=== PATIENT | male | born 1940 | race Caucasian/White ===

== ENCOUNTER 2016-07-12 13:51 | Inpatient (IN) | payer MEDICARE, BC ==
[~2016-07-12] VITALS: Ht 180.3 cm; Wt 81.1 kg
[2016-07-12] VITALS (7 sets, daily range): BP systolic 120–209; BP diastolic 59–90; PULSE 55–72; RESP 14–20; TEMP 97.1–97.8; O2SAT 95–100
--- NOTE | 2016-07-12 13:58 | PD ---
Physical Exam Date Seen by Provider: July 12, 2016 Time Seen by Provider: 13:54 Narrative 76 YOWM C/O EPIGASTRIC ABD PAIN SINCE YEST AM. NAUSEA NO EMESIS. NO LIVER DISEASE OR PANCREATITIS. H/O [place] PAIN 09/02. VS NOTED WAITING FOR BED PLACEMENT Data Data Last Documented VS Vital Signs Date Time Temp Pulse Resp B/P Pulse Ox O2 Delivery O2 Flow Rate FiO2 07/12/16 13:53 97.6 55 209/90 100 MDM Medical Record Reviewed: Yes Supervised Visit with DENICE: Parvez Judge July 12, 2016 13:58
--- NOTE | 2016-07-12 14:19 | PD ---
HPI Chief Complaint: Abdominal Pain Time Seen by Provider: 13:58 Travel History International Travel<30 days: No Contact w/Intl Traveler<30days: No Traveled to known affect area: No History of Present Illness HPI This is a 76-year-old male with a history of previous cholecystitis, who is status post cholecystectomy, who presents today with complaints of epigastric pain since yesterday. The patient denies any fevers, chills. The patient reports it feels like the pain he had when he had his cholecystitis. His last bowel movement was yesterday which was normal. He denies any urinary symptoms. He denies any chest pain or chest pressure. There is no previous history of ulcer. Patient has no history of pancreatitis. PFS Past Medical History Tetanus Vaccination: Unknown Influenza Vaccination: No Past Surgical History Abdominal Surgery: Yes (hernia) Cholecystectomy: Yes Social History Alcohol Use: Yes (rarely) Tobacco Use: No Substance Use: No Allergies-Medications (Allergen,Severity, Reaction): Coded Allergies: No Known Allergies (Unverified , 07/12/16) Reported Meds & Prescriptions Reported Meds & Active Scripts Active Reported Fish Oil 1000 mg ([place]-3 Fatty Acids) 1 Cap Cap 1,000 Mg PO DAILY Coq-10 (Coenzyme Q10 (Ubidecarenone)) 100 Mg Cap 100 Mg PO DAILY Vitamin C (Ascorbic Acid) 1,000 Mg Tab 1,000 Mg PO DAILY E-1000 (Vitamin E) 1,000 Unit Cap 1,000 Units PO DAILY Multi Vitamin and Mineral (Multiple Vitamins W/ Minerals) 1 Tab Tab 1 Tab PO DAILY Review of Systems Except as stated in HPI: all other systems reviewed are Neg General / Constitutional: No: Fever, Chills HENT: No: Headaches, Lightheadedness Cardiovascular: No: Chest Pain or Discomfort, Palpitations Respiratory: No: Cough Gastrointestinal: Positive: Abdominal Pain, No: Nausea, Vomiting, Diarrhea, Changes in Bowel Habits Genitourinary: No: Frequency, Dysuria Musculoskeletal: No: Weakness, Pain Neurologic: No: Weakness, Headache Physical Exam Narrative GENERAL: Well-nourished, well-developed patient, in no acute respiratory distress. SKIN: Focused skin assessment warm/dry. HEAD: Normocephalic/atraumatic. EYES: No scleral icterus. No injection or drainage. NECK: Supple, trachea midline. CARDIOVASCULAR: Regular rate and rhythm without murmurs, gallops, or rubs. RESPIRATORY: Breath sounds equal bilaterally. No accessory muscle use. GASTROINTESTINAL: Abdomen soft, nondistended. The patient has subjective epigastric pain to palpation. There is no rebound. There is mild guarding. There are no pulsatile masses. MUSCULOSKELETAL: No cyanosis, or edema. NEUROLOGICAL: Awake and alert. Cranial nerves II through XII intact. Motor grossly within normal limits. Five out of 5 muscle strength in all muscle groups. Normal speech. Data Data Last Documented VS Vital Signs Date Time Temp Pulse Resp B/P Pulse Ox O2 Delivery O2 Flow Rate FiO2 07/12/16 16:45 70 14 120/59 99 Nasal Cannula 2 07/12/16 13:53 97.6 Orders Morphine Inj (Morphine Inj) (07/12/16 14:30) Ondansetron Inj (Zofran Inj) (07/12/16 14:30) Sodium Chlor 0.9% 1000 Ml Inj (Ns 1000 M (07/12/16 14:30) Complete Blood Count With Diff (07/12/16 14:34) Comprehensive Metabolic Panel (07/12/16 14:34) Ckmb (Isoenzyme) Profile (07/12/16 14:34) Troponin I (07/12/16 14:34) Lipase (07/12/16 14:34) Urinalysis - C+S If Indicated (07/12/16 14:34) Chest, Single Ap (07/12/16 14:34) Iv Access Insert/Monitor (07/12/16 14:34) Ecg Monitoring (07/12/16 14:34) Oximetry (07/12/16 14:34) Ketorolac Inj (Toradol Inj) (07/12/16 15:15) CKMB (07/12/16 14:15) CKMB% (07/12/16 14:15) Ct Abd/Pel W/O Iv Contrast (07/12/16 16:04) Electrocardiogram (07/12/16 14:06) Admit To Inpatient (07/12/16 ) Vital Signs (Adult) Q4H (07/12/16 18:28) Activity Oob With Assistance (07/12/16 18:28) Diet Clear Liquid (07/12/16 Dinner) Sodium Chloride 0.9% Flush (Ns Flush) (07/12/16 18:30) Sodium Chloride 0.9% Flush (Ns Flush) (07/12/16 21:00) Acetaminophen (Tylenol) (07/12/16 18:30) Ondansetron Inj (Zofran Inj) (07/12/16 18:30) Magnesium Hydroxide Liq (Milk Of Magnesi (07/12/16 18:30) Basic Metabolic Panel (Bmp) (07/13/16 06:00) Complete Blood Count With Diff (07/13/16 06:00) Resp Oxygen Jerrell C Titrat 1-4 L (07/12/16 ) Scd Bilateral/Knee High RENAY.BID (07/12/16 18:28) Hydromorphone (Dilaudid) (07/12/16 18:30) Naloxone Inj (Narcan Inj) (07/12/16 18:30) Inpatient Certification (07/12/16 ) Pill Splitter (Pill Splitter) (07/12/16 18:45) Admit Order (Ed Use Only) (07/12/16 18:42) Labs Laboratory Tests Test 07/12/16 07/12/16 14:15 14:55 White Blood Count 11.6 TH/MM3 Red Blood Count 4.66 MIL/MM3 Hemoglobin 13.6 GM/DL Hematocrit 42.0 % Mean Corpuscular Volume 90.2 FL Mean Corpuscular Hemoglobin 29.1 PG Mean Corpuscular Hemoglobin 32.3 % Concent Red Cell Distribution Width 14.5 % Platelet Count 246 TH/MM3 Mean Platelet Volume 9.2 FL Neutrophils (%) (Auto) 68.2 % Lymphocytes (%) (Auto) 22.5 % Monocytes (%) (Auto) 7.7 % Eosinophils (%) (Auto) 1.3 % Basophils (%) (Auto) 0.3 % Neutrophils # (Auto) 7.9 TH/MM3 Lymphocytes # (Auto) 2.6 TH/MM3 Monocytes # (Auto) 0.9 TH/MM3 Eosinophils # (Auto) 0.1 TH/MM3 Basophils # (Auto) 0.0 TH/MM3 CBC Comment DIFF FINAL Differential Comment Sodium Level 136 MEQ/L Potassium Level 5.0 MEQ/L Chloride Level 103 MEQ/L Carbon Dioxide Level 26.2 MEQ/L Anion Gap 7 MEQ/L Blood Urea Nitrogen 14 MG/DL Creatinine 0.89 MG/DL Estimat Glomerular Filtration 84 ML/MIN Rate Random Glucose 102 MG/DL Calcium Level 9.5 MG/DL Total Bilirubin 2.8 MG/DL Aspartate Amino Transf 617 U/L (AST/SGOT) Alanine Aminotransferase 440 U/L (ALT/SGPT) Alkaline Phosphatase 221 U/L Total Creatine Kinase 163 U/L Creatine Kinase MB 1.4 NG/ML Troponin I LESS THAN 0.02 NG/ML Total Protein 7.7 GM/DL Albumin 3.6 GM/DL Lipase 308 U/L Urine Color YELLOW Urine Turbidity CLEAR Urine pH 6.5 Urine Specific [place] 1.012 Urine Protein TRACE mg/dL Urine Glucose (UA) NEG mg/dL Urine Ketones 40 mg/dL Urine Occult Blood SMALL Urine Nitrite NEG Urine Bilirubin NEG Urine Urobilinogen LESS THAN 2.0 MG/DL Urine Leukocyte Esterase NEG Urine RBC 14 /hpf Microscopic Urinalysis Comment CULT NOT INDICATED MDM Medical Decision Making Medical Screen Exam Complete: Yes Emergency Medical Condition: Yes Differential Diagnosis Pancreatitis versus retained gallstone versus peptic ulcer disease. Narrative Course 76 year-old gentleman who is reporting the status post cholecystectomy roughly one year ago in [facility], who presents today with epigastric pain. The patient states the pain feels as though it did when he had his gallbladder taken out. The patient denies any fevers, chills. He reports pain and decreased appetite. The patient's liver enzymes, bilirubin, lipase are all elevated. A noncontrast CT scan of the and pelvis shows what looks like a gallbladder with gallstones and a gallstone stuck in his common bile duct. There is mild dilatation of the bile duct. I discussed with the patient that our radiologist feels as though he still has his gallbladder. Either way, he will need an MRCP to remove the common bile duct stone. The [facility] the patient to his service. He has been given pain medicines and that current is having very little discomfort. Diagnosis Primary Impression: retained gallstone and common bile duct Additional Impressions: Elevated liver enzymes Elevated lipase Epigastric pain Admitting Information Admitting Physician Requests: Admit Robbin Washington MD July 12, 2016 14:19
[2016-07-12] MEDS ORDERED: ONDANSETRON HCL 4 MG/2 ML VIAL IVP ONE (14:30)
[2016-07-12] MEDS ORDERED: MORPHINE SULFATE 4 MG/ML INJ IV ONE (14:30)
[2016-07-12] MEDS: SODIUM CHLOR 0.9% 1000 ML INJ 1,000 ML IV SCH ×2 (14:37→21:50)
[2016-07-12 15:05] LABS: AUTOMATED NEUTROPHIL # 7.9 TH/MM3 (1.8-7.7); BASOPHIL % 0.3 % (0.0-2.0); EOSINOPHIL # 0.1 TH/MM3 (0-0.4); EOSINOPHIL % 1.3 % (0.0-4.0); HEMO FLAGS DIFF FINAL; LYMPH % 22.5 % (9.0-44.0); LYMPHOCYTE # 2.6 TH/MM3 (1.0-4.8); MEAN CELL VOLUME 90.2 FL (80.0-100.0); MEAN CORPUSCULAR HEMOGLOBIN 29.1 PG (27.0-34.0); MEAN CORPUSCULAR HGB CONC 32.3 % (32.0-36.0); MONO % 7.7 % (0.0-8.0); NEUT % 68.2 % (16.0-70.0); PLATELET COUNT 246 TH/MM3 (150-450); RED BLOOD COUNT 4.66 MIL/MM3 (4.50-5.90); RED CELL DISTRIBUTION WIDTH 14.5 % (11.6-17.2); WHITE BLOOD COUNT 11.6 TH/MM3 (4.0-11.0)
[2016-07-12] MEDS ORDERED: KETOROLAC TROMETHAMINE 30 MG/ML (IVP) VIAL IV PUSH ONE ×2 (15:15→22:30)
--- NOTE | 2016-07-12 15:25 | RADRPT ---
EXAM DATE/TIME: 07/12/2016 14:36 [facility] COMPARISON: No previous studies available for comparison. INDICATIONS : Lower chest/ upper abdomen pain. MEDICAL HISTORY : None. SURGICAL HISTORY : Cholecystectomy. ENCOUNTER: Initial ACUITY: 1 day PAIN SCORE: 7/10 LOCATION: Bilateral chest FINDINGS: A single view of the chest demonstrates the lungs to be symmetrically aerated without evidence of mas s, infiltrate or effusion. The cardiomediastinal contours are unremarkable. Osseous structures are intact. CONCLUSION: No acute disease. Roger Oshea MD FACR on July 12, 2016 at 15:23 Board Certified Radiologist. This report was verified electronically.
[2016-07-12] MEDS ORDERED: OMEG100037 PO (15:27)
[2016-07-12] MEDS ORDERED: VITA10007 PO (15:27)
[2016-07-12] MEDS ORDERED: COQ-100C2 PO (15:27)
[2016-07-12] MEDS ORDERED: E-10CAP PO (15:27)
[2016-07-12] MEDS ORDERED: MULT-142 PO (15:27)
[2016-07-12 15:48] LABS: ALKALINE PHOSPHATASE 221 U/L (45-117); ALT (GPT) 440 U/L (12-78); ANION GAP 7 MEQ/L (5-15); AST (GOT) 617 U/L (15-37); BICARBONATE 26.2 MEQ/L (21.0-32.0); BLOOD UREA NITROGEN 14 MG/DL (7-18); CHLORIDE 103 MEQ/L (98-107); CREATINE KINASE 163 U/L (39-308); GLOMERULAR FILTRATION RATE 84 ML/MIN (>89); SODIUM (NA) 136 MEQ/L (136-145); TOTAL BILIRUBIN ADULT 2.8 MG/DL (0.2-1.0)
[2016-07-12 16:01] LABS: CKMB 1.4 NG/ML (0.5-3.6)
[2016-07-12 16:04] LABS: BLOOD, URINE SMALL (NEG); COMMENT (UR) CULT NOT INDICATED; CULTURE IF INDICATED CULT NOT INDICATED; GLUCOSE,URINE NEG (NEG); KETONE, URINE 40 mg/dL (NEG); NITRITE,URINE NEG (NEG); PH, URINE 6.5 (5.0-8.5); URINE COLOR YELLOW (YELLW/STRAW)
--- NOTE | 2016-07-12 17:22 | RADRPT ---
EXAM DATE/TIME: 07/12/2016 16:57 [facility] COMPARISON: No previous studies available for comparison. INDICATIONS : Evaluate for pancreatitis. ORAL CONTRAST: No oral contrast ingested. RADIATION DOSE: 6.68 CTDIvol (mGy) MEDICAL HISTORY : Hernia. SURGICAL HISTORY : Cholecystectomy. ENCOUNTER: Initial ACUITY: 2 days PAIN SCALE: 4/10 LOCATION: Bilateral upper quadrant TECHNIQUE: Volumetric scanning of the abdomen and pelvis was performed. Using automated exposure control and ad justment of the mA and/or kV according to patient size, radiation dose was kept as low as reasonably achievable to obtain optimal diagnostic quality images. FINDINGS: There are centrilobular emphysematous changes in both lower lobes. The liver and spleen are normal in size and no focal defects are identified. Multiple splenic granulomas are present. There is history of cholecystectomy there does appear to be a small calcified gallbladder with stones present. There i s a tiny stone in the distal common bile duct measuring 2 mm. The adrenal glands are unremarkable. Th e right kidney is unremarkable. There is a single simple cyst in the left kidney measuring 6 cm. Examination of the pelvis demonstrates no evidence of free fluid or pelvic mass. No abnormally enlarg ed inguinal or retroperitoneal lymph nodes are present. The bladder is unremarkable. The prostate gla nd is moderately enlarged impinging on the bladder base. CONCLUSION: 1. Findings consisted with a small gallbladder and cholelithiasis despite the history of cholecystect kemal. Radionuclide imaging is recommended for further evaluation if clinically indicated. 2. 2 mm stone in the distal common bile duct without significant biliary ductal dilatation in the ai er. Sj Chambers MD on July 12, 2016 at 17:15 Board Certified Radiologist. This report was verified electronically.
[2016-07-12] MEDS ORDERED: SODIUM CHLORIDE 0.9% FLUSH 10 ML FLUSH IV FLUSH PRN (18:30)
[2016-07-12] MEDS ORDERED: NALOXONE HCL 0.4 MG/ML AMP IV PRN (18:30)
[2016-07-12] MEDS ORDERED: MAGNESIUM HYDROXIDE SUSP 30 ML CUP PO PRN (18:30)
[2016-07-12] MEDS ORDERED: PILL SPLITTER OTHER PRN (18:45)
--- NOTE | 2016-07-12 19:23 | HHI.HP ---
[facility] Non-Staff Admission Diagnosis Retained common bile duct stone with elevated liver enzymes. Diagnoses: Chief Complaint: Abdominal pain Travel History International Travel<30 Days: No Contact w/Intl Traveler <30 Da: No Traveled to Known Affected Are: No History of Present Illness Mr. Johns is a pleasant 76-year-old male with a history of cholecystectomy who presents to the emergency department on 07/12/2016. On 2016 in the morning patient started having epigastric pain off and on. He slept well at night. He even went to work during the day. However his pain came back. He describes his pain as severe but dull. No nausea vomiting or fever or chills. He has not eaten anything other than banana yesterday. Patient recalls his current symptoms are similar to the pain he had when he had cholecystitis in 2014. He denies any chest pain, shortness of breath, cough. Denies any changes in bowel or bladder habits. CT abdomen pelvis shows findings consistent with a small gallbladder and cholelithiasis despite the history of cholecystectomy. 2 mm stone in the distal common bile duct without significant biliary ductal dilatation in the liver. CBC unremarkable except for WBC 11.6K. chemistry panel shows sodium 136 potassium 5.0 BUN 14 creatinine 0.89. AST 617, ALP 440, alkaline phosphatase 221. Total bilirubin 2.8. Lipase 308. Review of Systems Except as stated in HPI: all other systems reviewed are Neg Past Family Social History Past Medical History Cholecystitis Past Surgical History Open cholecystectomy, hernia repair Reported Medications Fish Oil 1000 mg ([place]-3 Fatty Acids) 1 Cap Cap 1,000 Mg PO DAILY Coq-10 (Coenzyme Q10 (Ubidecarenone)) 100 Mg Cap 100 Mg PO DAILY Vitamin C (Ascorbic Acid) 1,000 Mg Tab 1,000 Mg PO DAILY E-1000 (Vitamin E) 1,000 Unit Cap 1,000 Units PO DAILY Multi Vitamin and Mineral (Multiple Vitamins W/ Minerals) 1 Tab Tab 1 Tab PO DAILY Allergies: Coded Allergies: No Known Allergies (Unverified , 07/12/16) Family History Mother and father - both had heart disease. Social History Denies using tobacco or illicit drugs. Drinks alcohol occasionally. Physical Exam Vital Signs Vital Signs Date Time Temp Pulse Resp B/P Pulse Ox O2 Delivery O2 Flow Rate FiO2 07/12/16 16:45 70 14 120/59 99 Nasal Cannula 2 07/12/16 16:15 14 07/12/16 14:45 14 07/12/16 14:37 56 14 172/77 100 Nasal Cannula 2 07/12/16 14:08 65 16 173/77 98 Nasal Cannula 2 07/12/16 14:04 14 07/12/16 13:53 97.6 55 209/90 100 Physical Exam GENERAL: This is a well-nourished, well-developed patient, in no apparent distress. SKIN: No rashes, ecchymoses or lesions. Warm and dry. HEAD: Atraumatic. Normocephalic. No temporal or scalp tenderness. EYES: Pupils equal round and reactive. No injection or drainage. ENT: Nose without bleeding, purulent drainage or septal hematoma. Airway patent. NECK: Trachea midline. No lymphadenopathy. Supple, nontender, no meningeal signs. CARDIOVASCULAR: Regular rate and rhythm without murmurs, gallops, or rubs. No JVD. RESPIRATORY: Clear to auscultation. Breath sounds equal bilaterally. No wheezes , rales, or rhonchi. GASTROINTESTINAL: Abdomen soft, epigastric area tender to palpation, nondistended. No guarding. MUSCULOSKELETAL: Extremities without clubbing, cyanosis, or edema. NEUROLOGICAL: Awake and alert. Cranial nerves II through XII intact. No focal neurological deficits. Normal speech. Laboratory Laboratory Tests Test 07/12/16 07/12/16 14:15 14:55 White Blood Count 11.6 Red Blood Count 4.66 Hemoglobin 13.6 Hematocrit 42.0 Mean Corpuscular Volume 90.2 Mean Corpuscular Hemoglobin 29.1 Mean Corpuscular Hemoglobin 32.3 Concent Red Cell Distribution Width 14.5 Platelet Count 246 Mean Platelet Volume 9.2 Neutrophils (%) (Auto) 68.2 Lymphocytes (%) (Auto) 22.5 Monocytes (%) (Auto) 7.7 Eosinophils (%) (Auto) 1.3 Basophils (%) (Auto) 0.3 Neutrophils # (Auto) 7.9 Lymphocytes # (Auto) 2.6 Monocytes # (Auto) 0.9 Eosinophils # (Auto) 0.1 Basophils # (Auto) 0.0 CBC Comment DIFF FINAL Differential Comment Sodium Level 136 Potassium Level 5.0 Chloride Level 103 Carbon Dioxide Level 26.2 Anion Gap 7 Blood Urea Nitrogen 14 Creatinine 0.89 Estimat Glomerular Filtration 84 Rate Random Glucose 102 Calcium Level 9.5 Total Bilirubin 2.8 Aspartate Amino Transf 617 (AST/SGOT) Alanine Aminotransferase 440 (ALT/SGPT) Alkaline Phosphatase 221 Total Creatine Kinase 163 Creatine Kinase MB 1.4 Troponin I LESS THAN 0.02 Total Protein 7.7 Albumin 3.6 Lipase 308 Urine Color YELLOW Urine Turbidity CLEAR Urine pH 6.5 Urine Specific [place] 1.012 Urine Protein TRACE Urine Glucose (UA) NEG Urine Ketones 40 Urine Occult Blood SMALL Urine Nitrite NEG Urine Bilirubin NEG Urine Urobilinogen LESS THAN 2.0 Urine Leukocyte Esterase NEG Urine RBC 14 Microscopic Urinalysis Comment CULT NOT INDICATED Result Diagram: 07/12/16 1415 07/12/16 1415 Imaging Last Impressions Abdomen/Pelvis CT 07/12/16 1604 Signed Impressions: Service Date/Time: Tuesday, July 12, 2016 16:57 - CONCLUSION: 1. Findings consisted with a small gallbladder and cholelithiasis despite the history of cholecystectomy. Radionuclide imaging is recommended for further evaluation if clinically indicated. 2. 2 mm stone in the distal common bile duct without significant biliary ductal dilatation in the liver. Sj Chambers MD Chest X-Ray 07/12/16 1434 Signed Impressions: Service Date/Time: Tuesday, July 12, 2016 14:36 - CONCLUSION: No acute disease. Roger Oshea MD FACR Assessment and Plan Problem List: (1) Gallbladder/common duct stone, acute cholecystitis, no obstruction ICD Code: K80.62 Status: Acute (2) Elevated liver enzymes ICD Code: R74.8 Status: Acute Assessment and Plan Mr. Johns is a pleasant 76-year-old male with a history of cholecystitis who presents to the emergency department on 07/12/2016 due to a gastric pain, anorexia. Patient feels that his pain is similar to the pain he had when he had a cholecystitis. He underwent open cholecystectomy in 2014. - Gallbladder/, and bile duct stone - Probable cholecystitis - Cholelithiasis - Elevated liver enzymes - Patient is a status post cholecystectomy. However, CT indicates finding of a small gallbladder and cholelithiasis - Liver enzymes are elevated AST 617, ALT 440, alkaline phosphatase 221. - We'll consult GI for further workup. Discussed with GI attendings. We'll get MRCP first. Patient may need ERCP as well. - Mild hypokalemia - will monitor in the morning. Full code. SCDs. Physician Certification 2 Midnight Certification Type: Admission for Inpatient Services Order for Inpatient Services The services are ordered in accordance with Medicare regulations or non- Medicare payer requirements, as applicable. In the case of services not specified as inpatient-only, they are appropriately provided as inpatient services in accordance with the 2-midnight benchmark. Estimated LOS (days): 2 days is the estimated time the patient will need to remain in the hospital, assuming treatment plan goals are met and no additional complications. Post-Hospital Plan: Izzy Valdivia DO July 12, 2016 7:23 pm
[2016-07-12] MEDS: SODIUM CHLORIDE 0.9% FLUSH 10 ML FLUSH IV FLUSH SCH (21:00)
[2016-07-13] VITALS (11 sets, daily range): BP systolic 128–175; BP diastolic 60–81; PULSE 50–101; RESP 18–22; TEMP 96.6–101.9; O2SAT 96–99
[2016-07-13] MEDS: SODIUM CHLOR 0.9% 1000 ML INJ 1,000 ML IV SCH ×3 (04:17→22:14)
[2016-07-13 05:27] LABS: AUTOMATED NEUTROPHIL # 6.9 TH/MM3 (1.8-7.7); BASOPHIL # 0.1 TH/MM3 (0-0.2); BASOPHIL % 0.7 % (0.0-2.0); EOSINOPHIL # 0.2 TH/MM3 (0-0.4); EOSINOPHIL % 2.4 % (0.0-4.0); HEMATOCRIT 41.3 % (39.0-51.0); HEMO FLAGS DIFF FINAL; LYMPH % 19.3 % (9.0-44.0); LYMPHOCYTE # 1.9 TH/MM3 (1.0-4.8); MEAN CELL VOLUME 90.9 FL (80.0-100.0); MEAN CORPUSCULAR HEMOGLOBIN 29.4 PG (27.0-34.0); MEAN CORPUSCULAR HGB CONC 32.3 % (32.0-36.0); MONO % 7.4 % (0.0-8.0); NEUT % 70.2 % (16.0-70.0); PLATELET COUNT 226 TH/MM3 (150-450); RED BLOOD COUNT 4.54 MIL/MM3 (4.50-5.90); RED CELL DISTRIBUTION WIDTH 14.2 % (11.6-17.2); WHITE BLOOD COUNT 9.9 TH/MM3 (4.0-11.0)
[2016-07-13] MEDS: ONDANSETRON HCL 4 MG/2 ML VIAL IVP PRN ×2 (05:57→15:47)
[2016-07-13] MEDS: HYDROmorphone HCL 2 MG TAB PO PRN ×3 (05:58→20:00)
[2016-07-13 06:02] LABS: BICARBONATE 24.2 MEQ/L (21.0-32.0); POTASSIUM 3.9 MEQ/L (3.5-5.1)
[2016-07-13 10:13] LABS: INDIRECT BILIRUBIN 1.3 MG/DL (0.0-0.8); TOTAL BILIRUBIN ADULT 4.4 MG/DL (0.2-1.0)
--- NOTE | 2016-07-13 11:11 | PD.CONS ---
HPI History of Present Illness This is a pleasant 76 year old male with a history of cholecystectomy in May of 2015 who presents to the emergency department for evaluation of epigastric pain. States he had bouts of this on off for a while but was severe 2 days ago, similar to the pain he had with cholecystitis. He did fine after wards, had a good bowel movement and slept good. However the pain came back. He describes his pain as severe but dull. No nausea, vomiting, fever or chills. No change in bowels. The urine is becoming more dark. CT abdomen pelvis shows findings consistent with a small gallbladder and cholelithiasis despite the history of cholecystectomy. 2 mm stone in the distal common bile duct without significant biliary ductal dilatation in the liver. Labs revealed elevated LFTs, and bili. lipase normal, CBC unremarkable. He tells me had hx of sludge in the CBD and under went ERCP with sphincterotomy X 2, last one 3 months prior to gallbladder surgery. (Glendy Araujo) PFSH Past Medical History Cholecystitis Past Surgical History Open cholecystectomy, hernia repair, ERCP, colonoscopy (Glendy Araujo) Coded Allergies: No Known Allergies (Unverified , 07/12/16) Medications Current Medications Medications (Trade) Dose Ordered Sig/Amelia Route Start Time Stop Time Status Last Admin (NS 1000 ml Inj) 1,000 ml @ 125 mls/hr Q8H IV 07/12/16 14:30 07/13/16 04:17 (NS Flush) 2 ml UNSCH PRN IV FLUSH 07/12/16 18:30 (NS Flush) 2 ml BID IV FLUSH 07/12/16 21:00 (Tylenol) 650 mg Q4H PRN PO 07/12/16 18:30 (Zofran Inj) 4 mg Q6H PRN IVP 07/12/16 18:30 07/13/16 05:57 (Milk Of Magnesia Liq) 30 ml Q12H PRN PO 07/12/16 18:30 (Dilaudid) 0.5 mg Q4H PRN PO 07/12/16 18:30 07/13/16 05:58 (Narcan Inj) 0.4 mg UNSCH PRN IV 07/12/16 18:30 (Pill Splitter) 1 ea UNSCH PRN OTHER 07/12/16 18:45 Family History Mother and father - both had heart disease. Social History Denies using tobacco or illicit drugs. Drinks alcohol occasionally. (Glendy Araujo) Review of Systems Constitutional: DENIES: Fever, Chills Endocrine: DENIES: Polyuria Eyes: DENIES: Double Vision Ears, nose, mouth, throat: DENIES: Hoarseness Respiratory: DENIES: Shortness of breath Cardiovascular: DENIES: Lower Extremity Edema Gastrointestinal: COMPLAINS OF: Abdominal pain, DENIES: Black stools, Bloody stools, Constipation, Diarrhea, Nausea, Vomiting, Difficulty Swallowing, Anorexia, Odynophagia, Swelling of Abdomen, Heartburn, Hematemesis Genitourinary: DENIES: Hematuria Musculoskeletal: DENIES: Neck pain Integumentary: DENIES: Jaundice Hematologic/lymphatic: DENIES: Bruising Immunologic/allergic: DENIES: Eczema Neurologic: DENIES: Abnormal gait Psychiatric: DENIES: Anxiety (Glendy Araujo) GI Exam Vitals I&O Vital Signs Date Time Temp Pulse Resp B/P Pulse Ox O2 Delivery O2 Flow Rate FiO2 07/13/16 04:00 97.9 64 18 151/73 98 07/13/16 00:00 96.6 50 18 135/61 99 07/12/16 20:49 97.1 65 20 130/61 95 07/12/16 19:40 72 16 127/68 99 Nasal Cannula 2 07/12/16 16:45 70 14 120/59 99 Nasal Cannula 2 07/12/16 16:15 14 07/12/16 14:45 14 07/12/16 14:37 56 14 172/77 100 Nasal Cannula 2 07/12/16 14:08 65 16 173/77 98 Nasal Cannula 2 07/12/16 14:04 14 07/12/16 13:53 97.6 55 209/90 100 I/O 07/12/16 07/12/16 07/12/16 07/13/16 07/13/16 07/13/16 07:00 15:00 23:00 07:00 15:00 23:00 Intake Total 1285 ml 1373 ml Output Total 2000 ml 1100 ml Balance -715 ml 273 ml Intake Oral 240 ml IV Total 1285 ml 1133 ml Output Urine Total 1000 ml 1100 ml Stool Total 1000 ml # Voids 1 5 # Bowel Movements 0 Imaging Last Impressions Abdomen/Pelvis CT 07/12/16 1604 Signed Impressions: Service Date/Time: Tuesday, July 12, 2016 16:57 - CONCLUSION: 1. Findings consisted with a small gallbladder and cholelithiasis despite the history of cholecystectomy. Radionuclide imaging is recommended for further evaluation if clinically indicated. 2. 2 mm stone in the distal common bile duct without significant biliary ductal dilatation in the liver. Sj Chambers MD Chest X-Ray 07/12/16 1434 Signed Impressions: Service Date/Time: Tuesday, July 12, 2016 14:36 - CONCLUSION: No acute disease. Roger Oshea MD FACR Laboratory Test 07/12/16 07/12/16 07/13/16 14:15 14:55 04:26 White Blood Count 11.6 TH/MM3 9.9 TH/MM3 Red Blood Count 4.66 MIL/MM3 4.54 MIL/MM3 Hemoglobin 13.6 GM/DL 13.3 GM/DL Hematocrit 42.0 % 41.3 % Mean Corpuscular Volume 90.2 FL 90.9 FL Mean Corpuscular Hemoglobin 29.1 PG 29.4 PG Mean Corpuscular Hemoglobin 32.3 % 32.3 % Concent Red Cell Distribution Width 14.5 % 14.2 % Platelet Count 246 TH/MM3 226 TH/MM3 Mean Platelet Volume 9.2 FL 9.6 FL Neutrophils (%) (Auto) 68.2 % 70.2 % Lymphocytes (%) (Auto) 22.5 % 19.3 % Monocytes (%) (Auto) 7.7 % 7.4 % Eosinophils (%) (Auto) 1.3 % 2.4 % Basophils (%) (Auto) 0.3 % 0.7 % Neutrophils # (Auto) 7.9 TH/MM3 6.9 TH/MM3 Lymphocytes # (Auto) 2.6 TH/MM3 1.9 TH/MM3 Monocytes # (Auto) 0.9 TH/MM3 0.7 TH/MM3 Eosinophils # (Auto) 0.1 TH/MM3 0.2 TH/MM3 Basophils # (Auto) 0.0 TH/MM3 0.1 TH/MM3 CBC Comment DIFF FINAL DIFF FINAL Differential Comment Sodium Level 136 MEQ/L 142 MEQ/L Potassium Level 5.0 MEQ/L 3.9 MEQ/L Chloride Level 103 MEQ/L 109 MEQ/L Carbon Dioxide Level 26.2 MEQ/L 24.2 MEQ/L Anion Gap 7 MEQ/L 9 MEQ/L Blood Urea Nitrogen 14 MG/DL 11 MG/DL Creatinine 0.89 MG/DL 0.79 MG/DL Estimat Glomerular Filtration 84 ML/MIN 96 ML/MIN Rate Random Glucose 102 MG/DL 101 MG/DL Calcium Level 9.5 MG/DL 9.0 MG/DL Total Bilirubin 2.8 MG/DL 4.4 MG/DL Aspartate Amino Transf 617 U/L 900 U/L (AST/SGOT) Alanine Aminotransferase 440 U/L 770 U/L (ALT/SGPT) Alkaline Phosphatase 221 U/L 279 U/L Total Creatine Kinase 163 U/L Creatine Kinase MB 1.4 NG/ML Troponin I LESS THAN 0.02 NG/ML Total Protein 7.7 GM/DL 6.8 GM/DL Albumin 3.6 GM/DL 3.2 GM/DL Lipase 308 U/L Urine Color YELLOW Urine Turbidity CLEAR Urine pH 6.5 Urine Specific Wald[place] 1.012 Urine Protein TRACE mg/dL Urine Glucose (UA) NEG mg/dL Urine Ketones 40 mg/dL Urine Occult Blood SMALL Urine Nitrite NEG Urine Bilirubin NEG Urine Urobilinogen LESS THAN 2.0 MG/DL Urine Leukocyte Esterase NEG Urine RBC 14 /hpf Microscopic Urinalysis Comment CULT NOT INDICATED Direct Bilirubin 3.1 MG/DL Indirect Bilirubin 1.3 MG/DL Physical Examination HEENT: normocephalic; atraumatic; no jaundice. NECK: Neck is supple, no JVD, no lymphadenopathy. CHEST: Chest is clear to auscultation and percussion. CARDIAC: Regular rate and rhythm with no murmur gallop or rubs. ABDOMEN: Soft, nondistended, epigastric tenderness; no hepatosplenomegaly; bowel sounds are present in all four quadrants. EXTREMITIES: No clubbing, cyanosis, or edema. SKIN: Normal; no rash; no jaundice. [employer]: No focal deficits; alert and oriented times three. (Glendy Araujo) Assessment and Plan Plan - Choledocholithiasis/epigastric pain- CT abdomen pelvis shows findings consistent with a small gallbladder and cholelithiasis despite the history of cholecystectomy. 2 mm stone in the distal common bile duct without significant biliary ductal dilatation in the liver. Labs revealed elevated LFTs, and bili. lipase normal, CBC unremarkable. He tells me had hx of sludge in the CBD and under went ERCP with sphincterotomy X 2, last one 3 months prior to gallbladder surgery. - Elevated LFTs/bili- Worsening most likely secondary to above. today tot. bili 4.4, AST 900, ALT 770, ALP 279 - Cholelithiasis on CT, patient with hx of cholecystectomy in 2016 Plan: - NPO for now, possible ERCP today - Await MRCP results - Obtain consents for ERCP, timing to be determined - CMP, CBC in am - Supportive care - Patient seen and examined by Dr. Thurston and myself and this note is written on his behalf. (Glendy Araujo) Plan ERCP will be done tomorrow. Clear liquid diet now and NPO after midnight tonight for the ERCP (Aram Thurston MD) Glendy Araujo July 13, 2016 11:11 Aram Thurston MD July 13, 2016 16:04
[2016-07-13] MEDS: SODIUM CHLORIDE 0.9% FLUSH 10 ML FLUSH IV FLUSH SCH ×2 (12:23→20:04)
--- NOTE | 2016-07-13 15:46 | EKG ---
Date Performed: 07/12/2016 Time Performed: 14:06:41 PTAGE: 76 years EKG: SINUS BRADYCARDIA WITH OCCASIONAL SUPRAVENTRICULAR PREMATURE COMPLEXES BORDERLINE ECG NO PREVIOUS TRACING DOCTOR: Kylah Grant Interpretating Date/Time 07/13/2016 15:45:12
--- NOTE | 2016-07-13 15:48 | RADRPT ---
EXAM DATE/TIME: 07/13/2016 13:32 [facility] COMPARISON: CT ABDOMEN & PELVIS W/O CONTRAST, July 12, 2016, 16:57. INDICATIONS : Obstruction. MEDICAL HISTORY : None. SURGICAL HISTORY : Inguinal hernia repair. Cholecystectomy. ENCOUNTER: Initial ACUITY: 1 day PAIN SCORE: 5/10 LOCATION: Right upper quadrant TECHNIQUE: Multiplanar, multisequence magnetic resonance imaging of the abdomen was performed. H igh-resolution 3D dataset was utilized to reconstruct maximum-intensity projection (MIP) images. FINDINGS: There is dilatation of the intra and extrahepatic biliary ducts. The common bile duct measures 1.3 c m. The patient is status post cholecystectomy. There does appear to be a small saclike area in the right upper quadrant which likely represents some dilatation of the cystic duct remnant. There is a filling defect measuring 6 mm seen at the distal common bile duct at the ampulla. No other filling d efects are seen. There are calcifications seen around the cystic duct remnant seen on the CT examina tion. Filling defects are not seen. There is low signal in the cystic duct remnant wall suggesting the calcifications are actually in the wall. Stones are not seen in this structure on this study. There is a small 0.6 cm focal mass in the superior aspect of the right lobe of the liver best seen on the coronal T2 weighted images. This likely represents a small cyst or hemangioma. There are bilat eral renal cysts with the largest cyst seen at the superomedial left kidney measuring 6.3 cm. Hydron ephrosis is not seen. The adrenal glands are normal. The spleen is unremarkable. The pancreas appe ars grossly normal. The pancreatic duct is seen and measures 3 mm which is upper limits of normal. The IVC and aorta are unremarkable. CONCLUSION: 1. 6 mm stone in the common bile duct with dilatation of the intra and extrahepatic biliary ducts. 2. Cystic pouch like structure seen in the right upper quadrant. Given the patient's history of shakira or cholecystectomy, this likely represents dilatation of the cystic duct remnant. No filling defects are seen in this region. The calcifications in this region seen on the CT examination are likely ca lcifications within the wall. Al Sanchez MD on July 13, 2016 at 15:34 Board Certified Radiologist. This report was verified electronically.
[2016-07-13] MEDS: ACETAMINOPHEN 325 MG TAB PO PRN ×2 (17:00→21:10)
--- NOTE | 2016-07-13 21:16 | RADRPT ---
EXAM DATE/TIME: 07/13/2016 21:02 [facility] COMPARISON: CHEST SINGLE AP, July 12, 2016, 14:36. INDICATIONS : Fever and shortness of breath. MEDICAL HISTORY : None. SURGICAL HISTORY : Cholecystectomy. ENCOUNTER: Subsequent ACUITY: 1 day PAIN SCORE: 0/10 LOCATION: Bilateral chest FINDINGS: A single view of the chest demonstrates the lungs to be symmetrically aerated without evidence of mas s, infiltrate or effusion. The cardiomediastinal contours are unremarkable. Osseous structures are intact. CONCLUSION: No acute disease. Al Sanchez MD on July 13, 2016 at 21:14 Board Certified Radiologist. This report was verified electronically.
[2016-07-13 21:57] LABS: BLOOD, URINE MOD (NEG); GLUCOSE,URINE NEG (NEG); KETONE, URINE 150 mg/dL (NEG); MUCUS URINE FEW /lpf (OCC); NITRITE,URINE NEG (NEG); PH, URINE 5.5 (5.0-8.5); SQUAMOUS EPITHELIAL CELL URINE <1 /hpf (0-5); URINE COLOR DARK-YELLOW (YELLW/STRAW)
[2016-07-13 21:59] LABS: COMMENT (UR) CULT NOT INDICATED; CULTURE IF INDICATED CULT NOT INDICATED
[2016-07-13 22:11] LABS: AUTOMATED NEUTROPHIL # 8.4 TH/MM3 (1.8-7.7); BASOPHIL % 0.4 % (0.0-2.0); EOSINOPHIL % 0.1 % (0.0-4.0); HEMATOCRIT 38.1 % (39.0-51.0); HEMO FLAGS DIFF FINAL; LYMPH % 11.9 % (9.0-44.0); LYMPHOCYTE # 1.3 TH/MM3 (1.0-4.8); MEAN CORPUSCULAR HEMOGLOBIN 30.4 PG (27.0-34.0); MEAN CORPUSCULAR HGB CONC 34.2 % (32.0-36.0); MONO % 9.6 % (0.0-8.0); PLATELET COUNT 233 TH/MM3 (150-450); RED BLOOD COUNT 4.28 MIL/MM3 (4.50-5.90); RED CELL DISTRIBUTION WIDTH 14.4 % (11.6-17.2); WHITE BLOOD COUNT 10.8 TH/MM3 (4.0-11.0)
[2016-07-13] MEDS: PIPERACIL-TAZO 3.375 GM PREMIX 50 ML IV SCH (22:13)
--- NOTE | 2016-07-13 23:37 | HHI.PR ---
Subjective Remarks Follow up for epigastric pain, choledocholithiasis. Patient is currently doing well. Last night he had some pain. No fever, chills. Objective Vitals Vital Signs Date Time Temp Pulse Resp B/P Pulse Ox O2 Delivery O2 Flow Rate FiO2 07/13/16 22:17 99.9 78 143/67 07/13/16 21:06 149/78 07/13/16 21:00 20 07/13/16 20:40 101.9 07/13/16 19:25 98.3 07/13/16 19:20 101.0 101 22 167/76 97 07/13/16 16:00 99.4 67 18 175/81 96 07/13/16 12:00 98.9 59 18 128/60 98 07/13/16 08:50 96 21 07/13/16 08:00 99.3 68 19 135/65 97 07/13/16 04:00 97.9 64 18 151/73 98 07/13/16 00:00 96.6 50 18 135/61 99 I/O 07/12/16 07/12/16 07/12/16 07/13/16 07/13/16 07/13/16 07:00 15:00 23:00 07:00 15:00 23:00 Intake Total 1285 ml 1373 ml 875 ml 820 ml Output Total 2000 ml 1100 ml Balance -715 ml 273 ml 875 ml 820 ml Intake Oral 240 ml 720 ml IV Total 1285 ml 1133 ml 875 ml 100 ml Output Urine Total 1000 ml 1100 ml Stool Total 1000 ml # Voids 1 5 3 # Bowel Movements 0 0 Result Diagram: 07/13/16 2135 07/13/16 0426 Imaging Last Impressions Cholangiopancreatography MRI 07/13/16 0000 Signed Impressions: Service Date/Time: Wednesday, July 13, 2016 13:32 - CONCLUSION: 1. 6 mm stone in the common bile duct with dilatation of the intra and extrahepatic biliary ducts. 2. Cystic pouch like structure seen in the right upper quadrant. Given the patient's history of prior cholecystectomy, this likely represents dilatation of the cystic duct remnant. No filling defects are seen in this region. The calcifications in this region seen on the CT examination are likely calcifications within the wall. Al Sanchez MD Chest X-Ray 07/13/16 0000 Signed Impressions: Service Date/Time: Wednesday, July 13, 2016 21:02 - CONCLUSION: No acute disease. Al Sanchez MD Abdomen/Pelvis CT 07/12/16 1604 Signed Impressions: Service Date/Time: Tuesday, July 12, 2016 16:57 - CONCLUSION: 1. Findings consisted with a small gallbladder and cholelithiasis despite the history of cholecystectomy. Radionuclide imaging is recommended for further evaluation if clinically indicated. 2. 2 mm stone in the distal common bile duct without significant biliary ductal dilatation in the liver. Sj Chambers MD Objective Remarks GENERAL: AOX3, NAD. SKIN: Warm and dry. HEAD: Normocephalic. EYES: No scleral icterus. No injection or drainage. NECK: Supple, trachea midline. No JVD or lymphadenopathy. CARDIOVASCULAR: Regular rate and rhythm without murmurs, gallops, or rubs. RESPIRATORY: Breath sounds equal bilaterally. No accessory muscle use. GASTROINTESTINAL: Abdomen soft, epigastric tenderness on palpation, nondistended. MUSCULOSKELETAL: No cyanosis, or edema. BACK: Nontender without obvious deformity. No CVA tenderness. Procedures 07/13/2016 MRCP A/P Problem List: (1) Choledocholithiasis with obstruction ICD Code: K80.51 Status: Acute Assessment and Plan Mr. Johns is a pleasant 76-year-old male with a history of cholecystitis who presents to the emergency department on 07/12/2016 due to a gastric pain, anorexia. Patient feels that his pain is similar to the pain he had when he had a cholecystitis. He underwent open cholecystectomy in 2014. - Choledocholithiasis with obstruction - Patient is a status post cholecystectomy in 2014. - AST 617 --> 900, ALT 440 --> 770, alkaline phosphatase 221 --> 279. T Bilirubin 2.8 --> 4.4. - Discussed with GI attending. MRCP done today - shows 6mm stone in the CBD. - ERCP is scheduled for tomorrow. NPO midnight except for meds. - Continue Zosyn 3.375 g Q6hrs. - Continue Dilaudid IV PRN - Mild hyperkalemia - resolved. K+ 5.0 --> 3.9. Full code. SCDs. Izzy Chávez DO July 13, 2016 23:37
[2016-07-14] VITALS: BP 119/55; PULSE 76; RESP 20; TEMP 97.7; O2SAT 96
[2016-07-14] MEDS: PIPERACIL-TAZO 3.375 GM PREMIX 50 ML IV SCH ×5 (03:37→21:00)
[2016-07-14 04:00] VITALS: BP_SYST 110; BP_DIAS 47; BP_DIAS 51; PULSE 54; RESP 18; TEMP 96.2; O2SAT 99
[2016-07-14] MEDS ORDERED: SODIUM CHLORID 0.9% 500 ML IV PRN (06:45)
[2016-07-14] MEDS ORDERED: CHLORHEXIDINE GLUCONATE 2 % 1 PACK (2 CLOTHS) TOPICAL PRN (06:45)
[2016-07-14] MEDS ORDERED: INSULIN HUMAN REGULAR 1,000 UNITS/10 ML VIAL SQ PRN (06:45)
[2016-07-14] MEDS ORDERED: LACTATED RINGER'S 1000 ML IV PRN (06:45)
[2016-07-14] MEDS ORDERED: POVIDONE IODINE 5% (ANTISEPSIS KIT) 4 APPLICATIONS EACH NARE PRN (06:45)
[2016-07-14 06:46] LABS: AUTOMATED NEUTROPHIL # 4.9 TH/MM3 (1.8-7.7); BASOPHIL % 0.6 % (0.0-2.0); EOSINOPHIL # 0.1 TH/MM3 (0-0.4); EOSINOPHIL % 1.5 % (0.0-4.0); HEMATOCRIT 36.2 % (39.0-51.0); HEMO FLAGS DIFF FINAL; LYMPH % 22.5 % (9.0-44.0); LYMPHOCYTE # 1.7 TH/MM3 (1.0-4.8); MEAN CELL VOLUME 89.6 FL (80.0-100.0); MEAN CORPUSCULAR HEMOGLOBIN 29.3 PG (27.0-34.0); MEAN CORPUSCULAR HGB CONC 32.7 % (32.0-36.0); NEUT % 66.4 % (16.0-70.0); PLATELET COUNT 191 TH/MM3 (150-450); RED BLOOD COUNT 4.04 MIL/MM3 (4.50-5.90); WHITE BLOOD COUNT 7.4 TH/MM3 (4.0-11.0)
[2016-07-14] MEDS: HYDROmorphone HCL 2 MG TAB PO PRN (06:55)
[2016-07-14] MEDS: ONDANSETRON HCL 4 MG/2 ML VIAL IVP PRN (07:01)
[2016-07-14 07:10] LABS: ALT (GPT) 575 U/L (12-78); ANION GAP 8 MEQ/L (5-15); AST (GOT) 415 U/L (15-37); BICARBONATE 26.9 MEQ/L (21.0-32.0); BLOOD UREA NITROGEN 11 MG/DL (7-18); CHLORIDE 107 MEQ/L (98-107); GLOMERULAR FILTRATION RATE 73 ML/MIN (>89); POTASSIUM 3.4 MEQ/L (3.5-5.1); SODIUM (NA) 142 MEQ/L (136-145)
[2016-07-14 07:17] LABS: ALKALINE PHOSPHATASE 291 U/L (45-117); TOTAL BILIRUBIN ADULT 5.5 MG/DL (0.2-1.0)
[2016-07-14 08:00] VITALS: BP 126/60; PULSE 52; RESP 19; TEMP 97.9; O2SAT 98
[2016-07-14] MEDS: SODIUM CHLORIDE 0.9% FLUSH 10 ML FLUSH IV FLUSH SCH ×2 (09:00→21:00)
--- NOTE | 2016-07-14 09:54 | HHI.GIFU ---
Subjective Remarks feels ok, no pain today, still elevated LFTs Objective Vitals I&O Vital Signs Date Time Temp Pulse Resp B/P Pulse Ox O2 Delivery O2 Flow Rate FiO2 07/14/16 04:00 96.2 54 18 110/51 99 07/14/16 00:00 97.7 76 20 119/55 96 07/13/16 22:17 99.9 78 143/67 07/13/16 21:06 149/78 07/13/16 21:00 20 07/13/16 20:40 101.9 07/13/16 19:25 98.3 07/13/16 19:20 101.0 101 22 167/76 97 07/13/16 16:00 99.4 67 18 175/81 96 07/13/16 12:00 98.9 59 18 128/60 98 I/O 07/13/16 07/13/16 07/13/16 07/14/16 07/14/16 07/14/16 07:00 15:00 23:00 07:00 15:00 23:00 Intake Total 1373 ml 875 ml 820 ml 240 ml Output Total 1100 ml 250 ml Balance 273 ml 875 ml 820 ml -10 ml Intake Oral 240 ml 720 ml 240 ml IV Total 1133 ml 875 ml 100 ml Output Urine Total 1100 ml 250 ml # Voids 5 3 # Bowel Movements 0 0 0 Laboratory Laboratory Tests Test 07/13/16 07/13/16 07/14/16 21:10 21:35 05:49 Urine Color DARK-YELLOW Urine Turbidity CLEAR Urine pH 5.5 Urine Specific Shanks 1.014 Urine Protein TRACE Urine Glucose (UA) NEG Urine Ketones 150 Urine Occult Blood MOD Urine Nitrite NEG Urine Bilirubin MOD Urine Urobilinogen LESS THAN 2.0 Urine Leukocyte Esterase NEG Urine RBC 3 Urine WBC 1 Urine Squamous Epithelial <1 Cells Urine Mucus FEW Microscopic Urinalysis Comment CULT NOT INDICATED White Blood Count 10.8 7.4 Red Blood Count 4.28 4.04 Hemoglobin 13.0 11.8 Hematocrit 38.1 36.2 Mean Corpuscular Volume 89.0 89.6 Mean Corpuscular Hemoglobin 30.4 29.3 Mean Corpuscular Hemoglobin 34.2 32.7 Concent Red Cell Distribution Width 14.4 14.0 Platelet Count 233 191 Mean Platelet Volume 9.1 9.1 Neutrophils (%) (Auto) 78.0 66.4 Lymphocytes (%) (Auto) 11.9 22.5 Monocytes (%) (Auto) 9.6 9.0 Eosinophils (%) (Auto) 0.1 1.5 Basophils (%) (Auto) 0.4 0.6 Neutrophils # (Auto) 8.4 4.9 Lymphocytes # (Auto) 1.3 1.7 Monocytes # (Auto) 1.0 0.7 Eosinophils # (Auto) 0.0 0.1 Basophils # (Auto) 0.0 0.0 CBC Comment DIFF FINAL DIFF FINAL Differential Comment Lactic Acid Level 1.0 Sodium Level 142 Potassium Level 3.4 Chloride Level 107 Carbon Dioxide Level 26.9 Anion Gap 8 Blood Urea Nitrogen 11 Creatinine 1.00 Estimat Glomerular Filtration 73 Rate Random Glucose 87 Calcium Level 8.3 Total Bilirubin 5.5 Aspartate Amino Transf 415 (AST/SGOT) Alanine Aminotransferase 575 (ALT/SGPT) Alkaline Phosphatase 291 Total Protein 6.0 Albumin 2.6 Date/Time Procedure Status Source Growth 07/13/16 21:38 Aerobic Blood Culture Received Blood Peripheral Pending 07/13/16 21:38 Anaerobic Blood Culture Received Blood Peripheral Pending Physical Exam HEENT: Pupils round and reactive to light; normocephalic; atraumatic; jaundice. Throat is clear. NECK: Neck is supple, no JVD, no lymphadenopathy. CHEST: Chest is clear to auscultation and percussion. CARDIAC: Regular rate and rhythm with no murmur gallop or rubs. ABDOMEN: Soft, nondistended, nontender; no hepatosplenomegaly; bowel sounds are present in all four quadrants. EXTREMITIES: No clubbing, cyanosis, or edema. SKIN: Normal; no rash; no jaundice. [employer]IC [employer]OMATIC: No focal deficits; alert and oriented times three. Assessment and Plan Plan - Choledocholithiasis/epigastric pain- CT abdomen pelvis shows findings consistent with a small gallbladder and cholelithiasis despite the history of cholecystectomy. 2 mm stone in the distal common bile duct without significant biliary ductal dilatation in the liver. Labs revealed elevated LFTs, and bili. lipase normal, CBC unremarkable. He tells me had hx of sludge in the CBD and under went ERCP with sphincterotomy X 2, last one 3 months prior to gallbladder surgery. - Elevated LFTs/bili- Worsening most likely secondary to above. today tot. bili 4.4, AST 900, ALT 770, ALP 279 - Cholelithiasis- as evidenced by CT, patient with hx of cholecystectomy in 2016 07-14-16 patient still have elevated LFTs, S/P ERCP with stone removal, I am not sure that the elevation of LFTs is contributed to the stone Plan: - NPO except ice until am the advance as tolerated - if LFTs still elevated in am then a w/u is needed to R/O other etiology - await bx from ampulla - CMP, CBC in am - Supportive care Lucrecia Haines MD July 14, 2016 09:54
[2016-07-14] MEDS ORDERED: DO NOT ADM ANY ANTICOAGULANT DRUGS PRN (09:56)
--- NOTE | 2016-07-14 10:06 | RADRPT ---
EXAM DATE/TIME: 07/14/2016 09:32 [facility] COMPARISON: MRCP W/O CONTRAST, July 13, 2016, 13:32. INDICATIONS : Biliary obstruction. FLUORO TIME: 1.39 minutes IMAGE COUNT: 4 CONTRAST: Instilled by Ordering Physician MEDICAL HISTORY : Gall stone SURGICAL HISTORY : None. ENCOUNTER: Initial ACUITY: 3 days PAIN SCORE: Non-responsive. LOCATION: Abdomen FINDINGS: An ERCP was performed by the ordering physician. The images demonstrate dilatation of the intrahepatic and extrahepatic biliary tree as noted on the r ecent MRCP. There are numerous air bubbles seen within the common bile duct. A catheter is passed to the common hepatic duct and the balloon inflated. CONCLUSION: ERCP as above. Vineet Carson MD on July 14, 2016 at 10:03 Board Certified Radiologist. This report was verified electronically.
[2016-07-14] MEDS ORDERED: IOHEXOL 350 MG/ML 100 ML BTL (for RAD DIAG) OTHER ONE (10:26)
[2016-07-14] MEDS ORDERED: PROPOFOL 100 MG/10 ML INJ IV ONE (10:26)
--- NOTE | 2016-07-14 10:47 | HHI.PR ---
Subjective Remarks Follow-up for epigastric pain, choledocholithiasis. Patient is doing well. He reports significant improvement of his epigastric pain. Denies any fever or chills. He is about to leave for ERCP this morning. Objective Vitals Vital Signs Date Time Temp Pulse Resp B/P Pulse Ox O2 Delivery O2 Flow Rate FiO2 07/14/16 08:00 97.9 52 19 126/60 98 07/14/16 04:00 96.2 54 18 110/51 99 07/14/16 00:00 97.7 76 20 119/55 96 07/13/16 22:17 99.9 78 143/67 07/13/16 21:06 149/78 07/13/16 21:00 20 07/13/16 20:40 101.9 07/13/16 19:25 98.3 07/13/16 19:20 101.0 101 22 167/76 97 07/13/16 16:00 99.4 67 18 175/81 96 07/13/16 12:00 98.9 59 18 128/60 98 I/O 07/13/16 07/13/16 07/13/16 07/14/16 07/14/16 07/14/16 07:00 15:00 23:00 07:00 15:00 23:00 Intake Total 1373 ml 875 ml 820 ml 240 ml Output Total 1100 ml 250 ml Balance 273 ml 875 ml 820 ml -10 ml Intake Oral 240 ml 720 ml 240 ml IV Total 1133 ml 875 ml 100 ml Output Urine Total 1100 ml 250 ml # Voids 5 3 # Bowel Movements 0 0 0 Result Diagram: 07/14/16 0549 07/14/16 0549 Imaging Last Impressions GI Procedure 07/14/16 0000 Signed Impressions: Service Date/Time: Thursday, July 14, 2016 09:32 - CONCLUSION: ERCP as above. Vineet Carson MD Cholangiopancreatography MRI 07/13/16 0000 Signed Impressions: Service Date/Time: Wednesday, July 13, 2016 13:32 - CONCLUSION: 1. 6 mm stone in the common bile duct with dilatation of the intra and extrahepatic biliary ducts. 2. Cystic pouch like structure seen in the right upper quadrant. Given the patient's history of prior cholecystectomy, this likely represents dilatation of the cystic duct remnant. No filling defects are seen in this region. The calcifications in this region seen on the CT examination are likely calcifications within the wall. Al Sanchez MD Chest X-Ray 07/13/16 0000 Signed Impressions: Service Date/Time: Wednesday, July 13, 2016 21:02 - CONCLUSION: No acute disease. Al Sanchez MD Abdomen/Pelvis CT 07/12/16 1604 Signed Impressions: Service Date/Time: Tuesday, July 12, 2016 16:57 - CONCLUSION: 1. Findings consisted with a small gallbladder and cholelithiasis despite the history of cholecystectomy. Radionuclide imaging is recommended for further evaluation if clinically indicated. 2. 2 mm stone in the distal common bile duct without significant biliary ductal dilatation in the liver. Sj Chambers MD Objective Remarks GENERAL: AOX3, NAD. SKIN: Warm and dry. HEAD: Normocephalic. EYES: No scleral icterus. No injection or drainage. NECK: Supple, trachea midline. No JVD or lymphadenopathy. CARDIOVASCULAR: Regular rate and rhythm without murmurs, gallops, or rubs. RESPIRATORY: Breath sounds equal bilaterally. No accessory muscle use. GASTROINTESTINAL: Abdomen soft, epigastric tenderness on palpation, nondistended. MUSCULOSKELETAL: No cyanosis, or edema. BACK: Nontender without obvious deformity. No CVA tenderness. Procedures 07/13/2016 MRCP A/P Problem List: (1) Choledocholithiasis with obstruction ICD Code: K80.51 Status: Acute Assessment and Plan Mr. Johns is a pleasant 76-year-old male with a history of cholecystitis who presents to the emergency department on 07/12/2016 due to a gastric pain, anorexia. Patient feels that his pain is similar to the pain he had when he had a cholecystitis. He underwent open cholecystectomy in 2014. - Choledocholithiasis with obstruction - Patient is a status post cholecystectomy in 2014. - AST 617 --> 900 --> 4:15, ALT 440 --> 770 --> 575, alkaline phosphatase 221 --> 279 --> 291. T Bilirubin 2.8 --> 4.4--> 5.5. - Discussed with GI attending. MRCP done today - shows 6mm stone in the CBD. - ERCP is scheduled for this AM. - Continue Zosyn 3.375 g Q6hrs. - Continue Dilaudid IV PRN - Mild hyperkalemia - resolved. K+ 5.0 --> 3.9. Full code. SCDs. Izzy Chávez DO July 14, 2016 10:47 am
[2016-07-14 11:50] VITALS: BP 137/65; PULSE 54; RESP 18; TEMP 96.9; O2SAT 96
[2016-07-14] MEDS: SODIUM CHLOR 0.9% 1000 ML INJ 1,000 ML IV SCH ×2 (15:28→21:01)
[2016-07-14 16:00] VITALS: BP 144/64; PULSE 55; RESP 18; TEMP 97.2; O2SAT 96
[2016-07-14 20:00] VITALS: BP 137/66; PULSE 60; RESP 18; TEMP 97.7; O2SAT 99
[2016-07-15] VITALS: BP 136/59; PULSE 63; RESP 20; TEMP 97.8; O2SAT 98
[2016-07-15 04:00] VITALS: BP 141/60; PULSE 61; RESP 18; TEMP 97; O2SAT 98
[2016-07-15] MEDS: PIPERACIL-TAZO 3.375 GM PREMIX 50 ML IV SCH ×3 (04:39→15:38)
[2016-07-15] MEDS: SODIUM CHLOR 0.9% 1000 ML INJ 1,000 ML IV SCH ×3 (04:40→15:42)
[2016-07-15 07:28] VITALS: BP 135/60; PULSE 52; RESP 17; TEMP 96.7; O2SAT 96
[2016-07-15 07:38] LABS: AUTOMATED NEUTROPHIL # 3.2 TH/MM3 (1.8-7.7); BASOPHIL % 0.8 % (0.0-2.0); EOSINOPHIL # 0.2 TH/MM3 (0-0.4); EOSINOPHIL % 3.7 % (0.0-4.0); HEMO FLAGS DIFF FINAL; LYMPH % 35.4 % (9.0-44.0); LYMPHOCYTE # 2.3 TH/MM3 (1.0-4.8); MEAN CELL VOLUME 90.4 FL (80.0-100.0); MEAN CORPUSCULAR HEMOGLOBIN 29.5 PG (27.0-34.0); MEAN CORPUSCULAR HGB CONC 32.7 % (32.0-36.0); MONO % 11.8 % (0.0-8.0); NEUT % 48.3 % (16.0-70.0); PLATELET COUNT 206 TH/MM3 (150-450); RED CELL DISTRIBUTION WIDTH 14.3 % (11.6-17.2); WHITE BLOOD COUNT 6.5 TH/MM3 (4.0-11.0)
--- NOTE | 2016-07-15 07:56 | HHI.PR ---
Subjective Remarks The patient is bed, he appears in not acute distress. Says urine is getting flap lining binder today. Says doesn't have much pain after MRCP yesterday. His nothing by mouth at this time ice chips, will advance diet clear liquid diet after seen by GI. He denies any fever or chills. No nausea or vomiting. No diarrhea. Passing gas. Did not have a bowel movement however was not eating either. Patient with multiple questions, all answered of best of my ability. I explained to the patient although he had his GB removed he is still prone to have stones as it happened this time. He is jokingly says he will have 4 additional episodes re-occuring... Patient says he might want to go hoem today however I explained to the patient he is not eating as yet and we will advance slowly diet and also will monitor LFT whitch seems are improving. Objective Vitals Vital Signs Date Time Temp Pulse Resp B/P Pulse Ox O2 Delivery O2 Flow Rate FiO2 07/15/16 07:28 96.7 52 17 135/60 96 07/15/16 04:00 97.0 61 18 141/60 98 07/15/16 00:00 97.8 63 20 136/59 98 07/14/16 20:00 97.7 60 18 137/66 99 07/14/16 16:00 97.2 55 18 144/64 96 07/14/16 11:50 96.9 54 18 137/65 96 07/14/16 11:15 58 16 135/61 97 Room Air 07/14/16 11:00 58 16 100/53 97 Room Air 07/14/16 10:45 52 16 103/51 99 Room Air 07/14/16 10:30 62 16 110/56 98 Room Air 07/14/16 10:15 72 16 112/52 98 Room Air 07/14/16 10:00 97.6 76 16 118/57 100 07/14/16 08:00 97.9 52 19 126/60 98 I/O 07/14/16 07/14/16 07/14/16 07/15/16 07/15/16 07/15/16 07:00 15:00 23:00 07:00 15:00 23:00 Intake Total 240 ml 425 ml 50 ml 50 ml Output Total 250 ml 650 ml 600 ml Balance -10 ml 425 ml -600 ml -550 ml Intake Oral 240 ml 50 ml 50 ml IV Total 425 ml Output Urine Total 250 ml 650 ml 600 ml # Voids 2 # Bowel Movements 0 0 0 Result Diagram: 07/15/16 0718 07/14/16 0549 Imaging Last Impressions GI Procedure 07/14/16 0000 Signed Impressions: Service Date/Time: Thursday, July 14, 2016 09:32 - CONCLUSION: ERCP as above. Vineet Carson MD Cholangiopancreatography MRI 07/13/16 0000 Signed Impressions: Service Date/Time: Wednesday, July 13, 2016 13:32 - CONCLUSION: 1. 6 mm stone in the common bile duct with dilatation of the intra and extrahepatic biliary ducts. 2. Cystic pouch like structure seen in the right upper quadrant. Given the patient's history of prior cholecystectomy, this likely represents dilatation of the cystic duct remnant. No filling defects are seen in this region. The calcifications in this region seen on the CT examination are likely calcifications within the wall. Al Sanchez MD Chest X-Ray 07/13/16 0000 Signed Impressions: Service Date/Time: Wednesday, July 13, 2016 21:02 - CONCLUSION: No acute disease. Al Sanchez MD Abdomen/Pelvis CT 07/12/16 1604 Signed Impressions: Service Date/Time: Tuesday, July 12, 2016 16:57 - CONCLUSION: 1. Findings consisted with a small gallbladder and cholelithiasis despite the history of cholecystectomy. Radionuclide imaging is recommended for further evaluation if clinically indicated. 2. 2 mm stone in the distal common bile duct without significant biliary ductal dilatation in the liver. Sj Chambers MD Objective Remarks GENERAL: Pleasant 76 yo male, well nourished, well developed patient, alert and oriented, appears in NAD. SKIN: Warm and dry. HEAD: Normocephalic. EYES: No scleral icterus. No injection or drainage. NECK: Supple, trachea midline. No JVD or lymphadenopathy. CARDIOVASCULAR: Regular rate and rhythm without murmurs, gallops, or rubs. RESPIRATORY: Breath sounds equal bilaterally. No accessory muscle use. GASTROINTESTINAL: Abdomen soft, epigastric tenderness on palpation, nondistended. MUSCULOSKELETAL: No cyanosis, or edema. BACK: Nontender without obvious deformity. No CVA tenderness. Procedures 07/13/2016 MRCP A/P Problem List: (1) Choledocholithiasis with obstruction ICD Code: K80.51 Status: Acute Assessment and Plan Mr. Johns is a pleasant 76-year-old male with a history of cholecystitis who presents to the emergency department on 07/12/2016 due to a gastric pain, anorexia. Patient feels that his pain is similar to the pain he had when he had a cholecystitis. He underwent open cholecystectomy in 2014. - Choledocholithiasis with obstruction - Patient is a status post cholecystectomy in 2014. - AST 617 --> 900 --> 4:15, ALT 440 --> 770 --> 575, alkaline phosphatase 221 --> 279 --> 291. T Bilirubin 2.8 --> 4.4--> 5.5. LFT continues to improve. - GI specialist following, appreciate recommendations. S/P MRCP 07/14 - shows 6mm stone in the CBD. - S/P ERCP with retrival of stone by GI 07/14 - Continue Zosyn 3.375 g Q6hrs. - Continue Dilaudid IV PRN. Pain however improving after ERCP. - Mild hyperkalemia - resolved. K+ 5.0 --> 3.9. Monitor - Constipation. stool softeners/ laxatives as need. Full code. SCDs. DC plan: DC when improved and cleared for DC by consultants. NPO, advance diet to CLD per GI. DC when LFT improved, tolerates diet and cleared by GI Discussed with the patient, nurse. Deyanira Arriaza MD July 15, 2016 07:56
[2016-07-15 08:14] LABS: ALKALINE PHOSPHATASE 282 U/L (45-117); ALT (GPT) 407 U/L (12-78); ANION GAP 9 MEQ/L (5-15); AST (GOT) 185 U/L (15-37); BICARBONATE 24.6 MEQ/L (21.0-32.0); BLOOD UREA NITROGEN 12 MG/DL (7-18); CHLORIDE 108 MEQ/L (98-107); GLOMERULAR FILTRATION RATE 96 ML/MIN (>89); POTASSIUM 3.6 MEQ/L (3.5-5.1); SODIUM (NA) 142 MEQ/L (136-145); TOTAL BILIRUBIN ADULT 1.5 MG/DL (0.2-1.0)
[2016-07-15] MEDS: SODIUM CHLORIDE 0.9% FLUSH 10 ML FLUSH IV FLUSH SCH (09:00)
[2016-07-15 11:30] VITALS: BP 169/77; PULSE 52; RESP 17; TEMP 95.2; O2SAT 99
--- NOTE | 2016-07-15 12:14 | MR ---
cc: BHAVANI BURRIS M.D. DATE OF 1940 DATE OF PROCEDURE 07/15/2016 PROCEDURE ERCP with stone removal, sphincterotomy and biopsy. INDICATION A 76-year-old male with elevated liver function tests. MRCP showed common bile duct stone with dilation of biliary tree. PROCEDURE After informing the patient about the procedure and complications, consent was signed. The patient was placed in his left lateral decubitus. Adequate sedation was achieved by propofol administered by anesthesia after intubation. The scope was placed in the mouth and advanced under video guidance to the second portion of the duodenum. The ampulla was identified which was bulging and very prominent. Cannulation was performed without any difficulty. Cholangiogram showed filling defect. Sphincterotomy was done sweeping the duct with a 15-mm balloon, revealed small stone and then a biopsy from the ampulla was done. This could be a lipoma. The scope was drawn back without immediate complication. FINDINGS 1. EGD limited exam normal except prominent ampulla. 2. Common bile duct dilated with filling defect, stone removed as above. RECOMMENDATIONS 1. Await biopsy. 2. Ice chips until tomorrow. 3. If the elevation of the liver function tests continue, then the patient will need full workup to rule out other etiology for the liver function test abnormality. MD AALIYAH Galeana/NICOLASA /10:00 AM /12:10 PM
--- NOTE | 2016-07-15 14:16 | HHI.GIFU ---
Subjective Remarks Up in chair. Tolerating liquids. No n/v. No abdominal pain. (Leda Mosley) Objective Vitals I&O Vital Signs Date Time Temp Pulse Resp B/P Pulse Ox O2 Delivery O2 Flow Rate FiO2 07/15/16 11:30 95.2 52 17 169/77 99 07/15/16 07:28 96.7 52 17 135/60 96 07/15/16 04:00 97.0 61 18 141/60 98 07/15/16 00:00 97.8 63 20 136/59 98 07/14/16 20:00 97.7 60 18 137/66 99 07/14/16 16:00 97.2 55 18 144/64 96 I/O 07/14/16 07/14/16 07/14/16 07/15/16 07/15/16 07/15/16 07:00 15:00 23:00 07:00 15:00 23:00 Intake Total 240 ml 425 ml 50 ml 50 ml 2421 ml Output Total 250 ml 650 ml 600 ml Balance -10 ml 425 ml -600 ml -550 ml 2421 ml Intake Oral 240 ml 50 ml 50 ml IV Total 425 ml 2421 ml Output Urine Total 250 ml 650 ml 600 ml # Voids 2 # Bowel Movements 0 0 0 Laboratory Laboratory Tests Test 07/15/16 07:18 White Blood Count 6.5 Red Blood Count 4.10 Hemoglobin 12.1 Hematocrit 37.0 Mean Corpuscular Volume 90.4 Mean Corpuscular Hemoglobin 29.5 Mean Corpuscular Hemoglobin 32.7 Concent Red Cell Distribution Width 14.3 Platelet Count 206 Mean Platelet Volume 8.9 Neutrophils (%) (Auto) 48.3 Lymphocytes (%) (Auto) 35.4 Monocytes (%) (Auto) 11.8 Eosinophils (%) (Auto) 3.7 Basophils (%) (Auto) 0.8 Neutrophils # (Auto) 3.2 Lymphocytes # (Auto) 2.3 Monocytes # (Auto) 0.8 Eosinophils # (Auto) 0.2 Basophils # (Auto) 0.0 CBC Comment DIFF FINAL Differential Comment Sodium Level 142 Potassium Level 3.6 Chloride Level 108 Carbon Dioxide Level 24.6 Anion Gap 9 Blood Urea Nitrogen 12 Creatinine 0.79 Estimat Glomerular Filtration 96 Rate Random Glucose 72 Calcium Level 8.1 Total Bilirubin 1.5 Aspartate Amino Transf 185 (AST/SGOT) Alanine Aminotransferase 407 (ALT/SGPT) Alkaline Phosphatase 282 Total Protein 6.3 Albumin 2.6 Date/Time Procedure Status Source Growth 07/13/16 21:38 Aerobic Blood Culture - Preliminary Resulted Blood Peripheral NO GROWTH IN 2 DAYS 07/13/16 21:38 Anaerobic Blood Culture - Preliminary Resulted Blood Peripheral NO GROWTH IN 2 DAYS Imaging Last Impressions GI Procedure 07/14/16 0000 Signed Impressions: Service Date/Time: Thursday, July 14, 2016 09:32 - CONCLUSION: ERCP as above. Vineet Carson MD Cholangiopancreatography MRI 07/13/16 0000 Signed Impressions: Service Date/Time: Wednesday, July 13, 2016 13:32 - CONCLUSION: 1. 6 mm stone in the common bile duct with dilatation of the intra and extrahepatic biliary ducts. 2. Cystic pouch like structure seen in the right upper quadrant. Given the patient's history of prior cholecystectomy, this likely represents dilatation of the cystic duct remnant. No filling defects are seen in this region. The calcifications in this region seen on the CT examination are likely calcifications within the wall. Al Sanchez MD Chest X-Ray 07/13/16 0000 Signed Impressions: Service Date/Time: Wednesday, July 13, 2016 21:02 - CONCLUSION: No acute disease. Al Sanchez MD Abdomen/Pelvis CT 07/12/16 1604 Signed Impressions: Service Date/Time: Tuesday, July 12, 2016 16:57 - CONCLUSION: 1. Findings consisted with a small gallbladder and cholelithiasis despite the history of cholecystectomy. Radionuclide imaging is recommended for further evaluation if clinically indicated. 2. 2 mm stone in the distal common bile duct without significant biliary ductal dilatation in the liver. Sj Chambers MD Physical Exam HEENT: Normocephalic; atraumatic; jaundice. CHEST: CTA CARDIAC: RRR ABDOMEN: Soft, nondistended, nontender; no hepatosplenomegaly; bowel sounds are present in all four quadrants. EXTREMITIES: No clubbing, cyanosis, or edema. SKIN: Normal; no rash; no jaundice. EARRING MAKER: No focal deficits; alert and oriented times three. (Leda Mosley) Assessment and Plan Plan ASSESSMENT: - Choledocholithiasis/epigastric pain. Abdomen/Pelvis CT (07/12/16)----> 1. Findings consisted with a small gallbladder and cholelithiasis despite the history of cholecystectomy. Radionuclide imaging is recommended for further evaluation if clinically indicated. 2. 2 mm stone in the distal common bile duct without significant biliary ductal dilatation in the liver. MRCP (07/13/16)----> 1. 6 mm stone in the common bile duct with dilatation of the intra and extrahepatic biliary ducts. 2. Cystic pouch like structure seen in the right upper quadrant. Given the patient's history of prior cholecystectomy, this likely represents dilatation of the cystic duct remnant. No filling defects are seen in this region. The calcifications in this region seen on the CT examination are likely calcifications within the wall. S/P ERCP with stone (07/14/16)-----> egd limited, prominent ampulla, CBD dilated with filling defect with stone removal. LFTs improving. T. Bili 1.5, AST 185, ALT 407, Alk Phosph 282. Clinically, doing well. Tolerating clears. No n/v/pain. - Elevated LFTs secondary to obstruction. IMPROVING after ERCP. T. Bili 1.5, AST 185, ALT 407, Alk Phosph 282. - Cholelithiasis- as evidenced by CT, patient with hx of cholecystectomy in 2016 Plan: - JAKE - Await pathology - LFT in am - If tolerating diet and LFTs continue to improve, okay to be discharged home from a GI standpoint - Supportive care - Pt seen and examined by Dr. Bhandari and myself and this note is written on his behalf (Leda Mosley) Physician Comments Patient seen and examined Agree with above Continue with current supportive care Monitor labs (Kb Bhandari MD) Leda Mosley July 15, 2016 14:16 Kb Bhandari MD July 15, 2016 22:33
[2016-07-15 15:44] VITALS: BP 128/66; PULSE 58; RESP 17; TEMP 97.7; O2SAT 99
[2016-07-15] MEDS ORDERED: NORC5TAB PO (16:41)
[2016-07-15] MEDS ORDERED: COLA100C3 PO (16:41)
--- NOTE | 2016-07-15 16:41 | HHI.DS ---
Discharge Summary Admission Date July 12, 2016 at 18:44 Discharge Date: July 15, 2016 Admitting Diagnosis Retained common bile duct stone with elevated liver enzymes. (1) Choledocholithiasis with obstruction ICD Code: K80.51 Procedures 07/13/2016 MRCP Brief History - From Admission Mr. Johns is a pleasant 76-year-old male with a history of cholecystectomy who presents to the emergency department on 07/12/2016. On 2016 in the morning patient started having epigastric pain off and on. He slept well at night. He even went to work during the day. However his pain came back. He describes his pain as severe but dull. No nausea vomiting or fever or chills. He has not eaten anything other than banana yesterday. Patient recalls his current symptoms are similar to the pain he had when he had cholecystitis in 2014. He denies any chest pain, shortness of breath, cough. Denies any changes in bowel or bladder habits. CT abdomen pelvis shows findings consistent with a small gallbladder and cholelithiasis despite the history of cholecystectomy. 2 mm stone in the distal common bile duct without significant biliary ductal dilatation in the liver. CBC unremarkable except for WBC 11.6K. chemistry panel shows sodium 136 potassium 5.0 BUN 14 creatinine 0.89. AST 617, ALP 440, alkaline phosphatase 221. Total bilirubin 2.8. Lipase 308. CBC/BMP: 07/15/16 0718 07/15/16 0718 Significant Findings Laboratory Tests Test 07/13/16 07/13/16 07/13/16 07/14/16 04:26 21:10 21:35 05:49 Neutrophils (%) (Auto) 70.2 % 78.0 % (16.0-70.0) (16.0-70.0) Chloride Level 109 MEQ/L (98-107) Total Bilirubin 4.4 MG/DL 5.5 MG/DL (0.2-1.0) (0.2-1.0) Direct Bilirubin 3.1 MG/DL (0.0-0.2) Indirect Bilirubin 1.3 MG/DL (0.0-0.8) Aspartate Amino Transf 900 U/L (15-37) 415 U/L (15-37) (AST/SGOT) Alanine Aminotransferase 770 U/L (12-78) 575 U/L (12-78) (ALT/SGPT) Alkaline Phosphatase 279 U/L 291 U/L (45-117) (45-117) Albumin 3.2 GM/DL 2.6 GM/DL (3.4-5.0) (3.4-5.0) Urine Color DARK-YELLOW (YELLW/STRAW) Urine Ketones 150 mg/dL (NEG) Urine Occult Blood MOD (NEG) Urine Bilirubin MOD (NEG) Urine Mucus FEW /lpf (OCC) Red Blood Count 4.28 MIL/MM3 4.04 MIL/MM3 (4.50-5.90) (4.50-5.90) Hematocrit 38.1 % 36.2 % (39.0-51.0) (39.0-51.0) Monocytes (%) (Auto) 9.6 % (0.0-8.0) 9.0 % (0.0-8.0) Neutrophils # (Auto) 8.4 TH/MM3 (1.8-7.7) Monocytes # (Auto) 1.0 TH/MM3 (0-0.9) Hemoglobin 11.8 GM/DL (13.0-17.0) Potassium Level 3.4 MEQ/L (3.5-5.1) Estimat Glomerular Filtration 73 ML/MIN (>89) Rate Calcium Level 8.3 MG/DL (8.5-10.1) Total Protein 6.0 GM/DL (6.4-8.2) Test 07/15/16 07:18 Red Blood Count 4.10 MIL/MM3 (4.50-5.90) Hemoglobin 12.1 GM/DL (13.0-17.0) Hematocrit 37.0 % (39.0-51.0) Monocytes (%) (Auto) 11.8 % (0.0-8.0) Chloride Level 108 MEQ/L (98-107) Random Glucose 72 MG/DL (74-106) Calcium Level 8.1 MG/DL (8.5-10.1) Total Bilirubin 1.5 MG/DL (0.2-1.0) Aspartate Amino Transf 185 U/L (15-37) (AST/SGOT) Alanine Aminotransferase 407 U/L (12-78) (ALT/SGPT) Alkaline Phosphatase 282 U/L (45-117) Total Protein 6.3 GM/DL (6.4-8.2) Albumin 2.6 GM/DL (3.4-5.0) Imaging Last Impressions GI Procedure 07/14/16 0000 Signed Impressions: Service Date/Time: Thursday, July 14, 2016 09:32 - CONCLUSION: ERCP as above. Vineet Carson MD Cholangiopancreatography MRI 07/13/16 0000 Signed Impressions: Service Date/Time: Wednesday, July 13, 2016 13:32 - CONCLUSION: 1. 6 mm stone in the common bile duct with dilatation of the intra and extrahepatic biliary ducts. 2. Cystic pouch like structure seen in the right upper quadrant. Given the patient's history of prior cholecystectomy, this likely represents dilatation of the cystic duct remnant. No filling defects are seen in this region. The calcifications in this region seen on the CT examination are likely calcifications within the wall. Al Sanchez MD Chest X-Ray 07/13/16 0000 Signed Impressions: Service Date/Time: Wednesday, July 13, 2016 21:02 - CONCLUSION: No acute disease. Al Sanchez MD Abdomen/Pelvis CT 07/12/16 1604 Signed Impressions: Service Date/Time: Tuesday, July 12, 2016 16:57 - CONCLUSION: 1. Findings consisted with a small gallbladder and cholelithiasis despite the history of cholecystectomy. Radionuclide imaging is recommended for further evaluation if clinically indicated. 2. 2 mm stone in the distal common bile duct without significant biliary ductal dilatation in the liver. Sj Chambers MD PE at Discharge GENERAL: Pleasant 76 yo male, well nourished, well developed patient, alert and oriented, appears in NAD. SKIN: Warm and dry. HEAD: Normocephalic. EYES: No scleral icterus. No injection or drainage. NECK: Supple, trachea midline. No JVD or lymphadenopathy. CARDIOVASCULAR: Regular rate and rhythm without murmurs, gallops, or rubs. RESPIRATORY: Breath sounds equal bilaterally. No accessory muscle use. GASTROINTESTINAL: Abdomen soft, epigastric tenderness on palpation, nondistended. MUSCULOSKELETAL: No cyanosis, or edema. BACK: Nontender without obvious deformity. No CVA tenderness. Pt update on day of discharge Patient tolerates diet, no n/v/d/c. No fever or chills. LFT improved significantly. Patient wants to go home. Discussed with GI cleared patient for DC to follow up as OP. Patient improved. Says he is eating healthy diet, low fat. Family at bedside (). Hospital Course Mr. Johns is a pleasant 76-year-old male with a history of cholecystitis who presents to the emergency department on 07/12/2016 due to a gastric pain, anorexia. Patient feels that his pain is similar to the pain he had when he had a cholecystitis. He underwent open cholecystectomy in 2014. - Choledocholithiasis with obstruction - Patient is a status post cholecystectomy in 2014. - AST 617 --> 900 --> 4:15, ALT 440 --> 770 --> 575, alkaline phosphatase 221 --> 279 --> 291. T Bilirubin 2.8 --> 4.4--> 5.5. LFT continues to improve. - GI specialist following, appreciate recommendations. S/P MRCP 07/14 - shows 6mm stone in the CBD. - S/P ERCP with retrival of stone by GI 07/[address] Haines GI specialist. - DC Zosyn 3.375 g Q6hrs. Patient with neg blood cx x2 days, no efevr or leukocytosis, no tachy. No need of abx at DC. Discussed with GI specialist. - Continue Dilaudid IV PRN. Pain however improving after ERCP. - Mild hyperkalemia - resolved. K+ 5.0 --> 3.9. Monitor. Now eating , tolerates food. - Constipation. stool softeners/ laxatives as need. Full code. SCDs. DC plan: DC when improved and cleared for DC by consultants. NPO, advance diet to CLD per GI. LFT improved, tolerates diet and cleared by GI Discussed with the patient, nurse, family at bedside (), Dr Haines, Dr Bhandari GI service. LFTs are improving. Patient is able to tolerate food. No n/v/d/c. No fever or chills. Patient without fever or chills,. Pain subsided after ERCP and removal of stone. Patient wants to go hoem. Discussed with GI specialisy both Dr Bhandari and Dr Haines GI. Patient is cleared for DC. To have repeat CMP on 07/18/16 and to follow up in the office with Dr Haines or Thony on Friday07/22/16. Pt Condition on Discharge: Stable Discharge Disposition: Discharge Home Discharge Time: > 30 minutes Discharge Instructions DIET: Follow Instructions for: Heart Healthy Diet Activities you can perform: Regular-No Restrictions Follow up Referrals: Gastroenterology - 07/22/16 PCP Follow-up - 3-5 Days New Orders: COMP MET PROF (CMP) - 07/18/16 New Medications: Docusate Sodium (Colace) 100 Mg Cap 100 MG PO BID Constipation #60 Ref 0 CAP Hydrocodone-Acetaminophen ([place]) 5-325 mg Tab 1 TAB PO Q6H PRN PAIN #15 Ref 0 TAB Continued Medications: Ascorbic Acid (Vitamin C) 1,000 Mg Tab 1000 MG PO DAILY Nutritional Supplement Ref 0 TAB Coenzyme Q10 (Ubidecarenone) (Coq-10) 100 Mg Cap 100 MG PO DAILY Multiple Vitamins W/ Minerals (Multi Vitamin and Mineral) 1 Tab Tab 1 TAB PO DAILY [place]-3 Fatty Acids (Fish Oil 1000 mg) 1 Cap Cap 1000 MG PO DAILY Vitamin E (E-1000) 1,000 Unit Cap 1000 UNITS PO DAILY Deyanira Arriaza MD July 15, 2016 16:41
== END 2016-07-15 18:19 | disposition home or self-care (01) | DRG 446 ==
LOC: NEPC 13:51 → NEDA 18:44 → N06B 20:34
PROVIDERS: ADMIT Hospitalist; ATTEND Hospitalist
PROC: 0FBC8ZX Excision of Ampulla of Vater, Via Natural or Artificial Opening Endoscopic, Diagnostic (ICD-10-PCS; 2016-07-14)
PROC: 0FC98ZZ Extirpation of Matter from Common Bile Duct, Via Natural or Artificial Opening Endoscopic (ICD-10-PCS; principal; 2016-07-14 09:00)
DX: K80.63 Calculus of gallbladder and bile duct with acute cholecystitis with obstruction (principal); E87.5 Hyperkalemia; K59.00 Constipation, unspecified
CPT/HCPCS: 71010; 74176; 74181; 74330; 76377; 80048; 80053; 80076; 81001; 82550; 82552; 83605; 83690; 84484; 85025; 87040; 88305; 93005; 96361; 96374; 96375; C1769; J1885; J2270; J2405; J2543; J3010; J7030; Q9967